=== PATIENT | male | born 1945 ===

== ENCOUNTER 2018-06-03 13:31 | Emergency (ER) | payer MEDICAID, OTHER ==
[2018-06-03 15:50] VITALS: BP 149/78
--- NOTE | 2018-06-03 16:40 | ED ---
Upper Extremity Pain - HPI Summary HPI Summary: Patient is a 72-year-old male presenting to the ED with right shoulder pain after a mechanical fall approximately 3-4 weeks ago. He states he continues to be able to abduct and adduct the arm, however with pain intermittently. He states the shoulder began to feel somewhat better over the past week, but then again slipping on the ice and catching himself on a railing, he believes he reinjured the arm. Denies any numbness or tingling. Patient is an otherwise healthy, takes no medications, has never injured this arm. - History of Current Complaint Chief Complaint: EDExtremityUpper Stated Complaint: FELL ON ICE SHOULDER INJURY Time Seen by Provider: 06/03/18 13:56 Hx Obtained From: Patient Onset/Duration: Started Weeks Ago Timing: Constant Severity Initially: Mild Severity Currently: Mild Pain Location: Shoulder Character: Aching Aggravating Factor(s): Nothing Alleviating Factor(s): Nothing Associated Signs & Symptoms: Positive: Negative Related History: Dominant Hand Right - Risk Factors Non-Orthopedic Risk Factor: Negative DVT Risk Factors: Negative Septic Arthritis Risk Factor: Negative Compartment Syndrome Risk Factors: Pain - Allergies/Home Medications Allergies/Adverse Reactions: Allergies Allergy/AdvReac Type Severity Reaction Status Date / Time No Known Allergies Allergy Verified 01/10/15 22:52 PMH/Surg Hx/FS Hx/Imm Hx Previously Healthy: Yes - Immunization History Hx Pertussis Vaccination: No Immunizations Up to Date: Yes Infectious Disease History: No Infectious Disease History: Denies: Traveled Outside the [place] in Last 30 Days - Social History Occupation: Unemployed Lives: Alone Alcohol Use: None Hx Substance Use: No Substance Use Type: Reports: None Hx Tobacco Use: No Smoking Status (MU): Former Smoker Review of Systems Constitutional: Negative Negative: Fever, Chills, Fatigue Negative: Palpitations, Chest Pain Genitourinary: Negative Positive: no symptoms reported, see HPI Positive: Arthralgia - right shoulder pain - anterior portion Neurological: Negative All Other Systems Reviewed And Are Negative: Yes Physical Exam Triage Information Reviewed: Yes Vital Signs On Initial Exam: Initial Vitals Temp Pulse Resp BP Pulse Ox 97.7 F 73 18 158/96 98 06/03/18 13:32 06/03/18 13:32 06/03/18 13:32 06/03/18 13:32 06/03/18 13:32 Vital Signs Reviewed: Yes Appearance: Positive: Well-Appearing, Well-Nourished Skin: Positive: Warm, Skin Color Reflects Adequate Perfusion Head/Face: Positive: Normal Head/Face Inspection Eyes: Positive: EOMI, Conjunctiva Clear Neck: Positive: Supple Respiratory/Lung Sounds: Positive: Clear to Auscultation, Breath Sounds Present Cardiovascular: Positive: RRR, Pulses are Symmetrical in both Upper and Lower Extremities Musculoskeletal: Positive: Strength/ROM Intact - right anterior shoulder pain Neurological: Positive: Speech Normal Psychiatric: Positive: Affect/Mood Appropriate AVPU Assessment: Alert Diagnostics - Vital Signs Vital Signs Temp Pulse Resp BP Pulse Ox 06/03/18 15:19 98.1 F 63 18 149/78 96 06/03/18 13:32 97.7 F 73 18 158/96 98 - Laboratory Lab Statement: Any lab studies that have been ordered have been reviewed, and results considered in the medical decision making process. Course/Dx - Course Course Of Treatment: During the course of treatment, the patient's evaluated for right shoulder injury. There is pain to palpation directly over the anterior portion of the rotator cuff. Patient is able to abduct and adduct. Symptoms worse past 90, however patient is able to abduct at the shoulder and flex at the arm behind the head without discomfort. Denies N/t. Shoulder x- ray obtained which shows no acute abnormalities. This is likely a rotator cuff injury and he will be referred to orthopedics for further evaluation. I've encouraged ibuprofen. - Diagnoses Provider Diagnoses: Right shoulder pain Discharge - Sign-Out/Discharge Documenting (check all that apply): Patient Departure Patient Received Moderate/Deep Sedation with Procedure: No - Discharge Plan Condition: Stable Disposition: HOME Patient Education Materials: Rotator Cuff Injury (ED) Referrals: No Primary Care Phys,NOPCP [Primary Care Provider] - Additional Instructions: Please follow up with orthopedics Take ibuprofen 600mg three times daily x 3-4 days for discomfort Gentle stretches - Billing Disposition and Condition Condition: STABLE Disposition: Home
== END 2018-06-03 15:50 | disposition home or self-care (01) ==
LOC: ED 13:31
DX: M25.511 Pain in right shoulder (principal); M19.011 Primary osteoarthritis, right shoulder; W00.0XXA Fall on same level due to ice and snow, initial encounter; Z87.891 Personal history of nicotine dependence
CPT/HCPCS: 99281